=== PATIENT | female | born 1955 | race Caucasian/White ===

== ENCOUNTER 2019-08-26 06:59 | Day surgery (SDC) | payer OTHER ==
[2019-08-26] MEDS ORDERED: LACTATED RINGERS 1,000 ML IV ONE (07:03)
[2019-08-26] MEDS ORDERED: MIDAZOLAM 2 MG/2 ML VIAL IVP ONE (09:30)
[2019-08-26] MEDS ORDERED: fentaNYL 250 MCG/5 ML VIAL IVP ONE (09:30)
[2019-08-26 10:20] VITALS: BP 130/62
== END 2019-08-26 07:00 | disposition home or self-care (01) ==
LOC: SDS 06:59
PROVIDERS: ATTEND Surgery
PROC: 0DBE8ZX Excision of Large Intestine, Via Natural or Artificial Opening Endoscopic, Diagnostic (ICD-10-PCS; principal; 2019-08-26 08:30)
DX: Z12.11 Encounter for screening for malignant neoplasm of colon (principal); K58.0 Irritable bowel syndrome with diarrhea; L29.0 Pruritus ani
CPT/HCPCS: 45380; 83630; 87015; 87045; 87046; 87177; 87209; 87272; 87329; 87493; J3010; J7120

== ENCOUNTER 2019-10-01 08:00 | Outpatient (CLI) | payer OTHER | END 2019-10-01 23:59 | disposition home or self-care (01) | LOC: LAB.R 08:00 | PROVIDERS: ATTEND Surgery | DX: A04.5 Campylobacter enteritis (principal) | CPT/HCPCS: 87045; 87046 ==

== ENCOUNTER 2019-12-23 08:00 | Outpatient (CLI) | payer OTHER | END 2019-12-23 23:59 | disposition home or self-care (01) | LOC: LAB.R 08:00 | PROVIDERS: ATTEND Surgery | DX: A04.5 Campylobacter enteritis (principal) | CPT/HCPCS: 81599; 87046 ==

== ENCOUNTER 2023-10-22 09:10 | Outpatient (CLI) | payer MEDICARE, BC ==
[2023-10-22 09:27] LABS: BASOPHILS % (AUTO) 0.6 %; EOSINOPHILS # (AUTO) 0.6 10^3/uL (0.0-0.7); EOSINOPHILS % (AUTO) 7.8 %; HCT - HEMATOCRIT 42.9 % (37.0-47.0); HGB - HEMOGLOBIN 13.9 g/dL (12.0-16.0); LYMPHOCYTES # (AUTO) 2.1 10^3/uL (1.5-3.5); LYMPHOCYTES % (AUTO) 29.4 %; MEAN CORPUSCULAR HEMOGLOBIN 29.8 pg (27.0-31.0); MEAN CORPUSCULAR HGB CONC 32.4 g/dL (32.0-36.0); MEAN CORPUSCULAR VOLUME 91.9 fL (81.0-99.0); MEAN PLATELET VOLUME 10.3 fL (7.9-10.8); MONOCYTES # (AUTO) 0.5 10^3/uL (0.0-1.0); MONOCYTES % (AUTO) 6.8 %; NEUTROPHILS % (AUTO) 55.1 %; PLT - PLATELET COUNT 262 10^3/uL (130-450); RED BLOOD COUNT 4.67 10^6/uL (4.20-5.40); RED CELL DISTRIBUTION WIDTH 12.9 % (12.0-15.0); WHITE BLOOD COUNT 7.2 x10^3/uL (4.8-10.8)
[2023-10-22 09:48] LABS: ALBUMIN 4.5 g/dL (3.2-5.5); ALBUMIN/GLOBULIN RATIO 1.7 (1.0-2.2); ALKALINE PHOSPHATASE 80 IU/L (42-121); ALT ALANINE AMINOTRANSFERASE 14 IU/L (10-60); AST ASPARTATE AMINOTRANSFERASE 11 IU/L (10-42); BILIRUBIN,TOTAL 0.5 mg/dL (0.2-1.0); BUN - BLOOD UREA NITROGEN 28 mg/dL (6-20); CARBON DIOXIDE - CO2 29 mmol/L (21-32); CHLORIDE 105 mmol/L (101-111); CHOL/HDL RATIO 6.6 (<4.4); CHOLESTEROL 291 mg/dL; CREATININE 0.9 mg/dL (0.6-1.3); GFR - MDRD 62 (>89); GLUCOSE 108 mg/dL (74-104); HDL CHOLESTEROL 44 mg/dL; LDL CHOLESTEROL,CALCULATED 192 mg/dL; LDL/HDL RATIO 4.4 (<4.4); POTASSIUM 4.4 mmol/L (3.5-4.5); SODIUM 140 mmol/L (135-145); TOTAL PROTEIN 7.2 g/dL (6.4-8.9); TRIGLYCERIDES 274 mg/dL (48-352); VLDL CHOLESTEROL 55 mg/dL
[2023-10-22 10:02] LABS: THYROID STIMULATING HORMONE 2.08 uIU/mL (0.34-5.60)
== END 2023-10-22 09:11 | disposition home or self-care (01) ==
LOC: LAB 09:10
PROVIDERS: ATTEND Nurse Practitioner Family
DX: I10 Essential (primary) hypertension (principal); E78.5 Hyperlipidemia, unspecified; R06.09 Other forms of dyspnea; E66.9 Obesity, unspecified; R73.9 Hyperglycemia, unspecified
CPT/HCPCS: 36415; 80053; 80061; 83721; 84443; 85025

== ENCOUNTER 2024-01-26 07:52 | Outpatient (CLI) | payer MEDICARE, BC ==
[2024-01-26 08:23] LABS: CHOL/HDL RATIO 5.4 (<4.4); CHOLESTEROL 242 mg/dL; HDL CHOLESTEROL 45 mg/dL; LDL CHOLESTEROL,CALCULATED 159 mg/dL; LDL/HDL RATIO 3.5 (<4.4); TRIGLYCERIDES 192 mg/dL (48-352); VLDL CHOLESTEROL 38 mg/dL
[2024-01-26 13:03] LABS: ESTIMATED AVERAGE GLUCOSE 103 mg/dL (70-100); HEMOGLOBIN A1c% 5.2 % (4.27-6.07)
== END 2024-01-26 07:53 | disposition home or self-care (01) ==
LOC: LAB 07:52
PROVIDERS: ATTEND Nurse Practitioner Family
DX: E78.5 Hyperlipidemia, unspecified (principal); R73.03 Prediabetes
CPT/HCPCS: 36415; 80061; 83036; 83721